=== PATIENT | male | born 1975 | race Caucasian/White ===

== ENCOUNTER 2017-01-11 17:07 | Emergency (ER) | payer OTHER | END 2017-01-11 20:18 | disposition home or self-care (01) | LOC: ER 17:07 | DX: S30.22XA Contusion of scrotum and testes, initial encounter (principal); J45.909 Unspecified asthma, uncomplicated; F17.200 Nicotine dependence, unspecified, uncomplicated; Z79.899 Other long term (current) drug therapy; W50.0XXA Accidental hit or strike by another person, initial encounter ==